=== PATIENT | female | born 1950 | race American Indian/Alaskan Native ===

== ENCOUNTER 2017-03-06 19:22 | Inpatient (IN) | payer MEDICARE ==
[2017-03-06] MEDS ORDERED: NORMODYNE IV ONE (21:08)
--- NOTE | 2017-03-06 21:08 | Emergency Department Report ---
ED Headache HPI - General Chief Complaint: Headache Stated Complaint: H/A; N/V Time Seen by Provider: 03/06/17 20:06 Source: patient, family (SISTER) Exam Limitations: other (DEMENTIA LIMITS HER COGNITIVE ABILITY) - History of Present Illness Initial Comments: 66 YO FEMALE PT WAS AT THE STORE WHEN SHE BEGAN TO HAVE HEADACHES. HER SISTER , WHO WAS WITH HER , BROUGHT HER HOME AND MEASURED HER BLOOD PRESSURE. THEIR MACHINE READ HIGH AND BECAUSE THE READING WERE ABOVE THE THRESHOLD OF THEIR MACHINE. SHE IS C/O HEADACHE. HSE HAS A H/O CVA 8 MONTHS AGO WITH THE SAME PRESENTATION OF HEADACHE AND HYPERTENSION. TODAY , WHEN SHE WENT HOME , SHE VOMITED FOR HALD AN HOUR,. SHE DID NOT C/O OF NAUSEA WHEN I EXAMINED HER . PAST MEDICAL HISTORY INCLUDED CVA, HTN, DEMENTIA,HYPERLIPIDEMIA,BIPOLAR, Timing/Duration: 1-3 hours (PRIOR TO ARRIVAL) Quality: severe Head Injury Location: global Recent Head Trauma: no recent headache/trauma, occasional headaches Associated Symptoms: denies symptoms Allergies/Adverse Reactions: Allergies erythromycin base Allergy (Verified 03/06/17 19:26) Hives Home Medications: Ambulatory Orders ALBUTEROL Inhaler [ProAir HFA Inhaler] 2 puff IH QID PRN 08/24/16 Aspirin [Aspirin BABY CHEW TAB] 81 mg PO QDAY #30 tab.chew 08/26/16 AtorvaSTATin [Lipitor] 20 mg PO QHS #30 tablet 08/26/16 Carvedilol [Coreg] 25 mg PO BID #60 tablet 08/26/16 Hydrochlorothiazide [HCTZ] 25 mg PO QDAY #30 tablet 08/26/16 metFORMIN [Glucophage] 500 mg PO BID #60 tablet 08/26/16 ED Review of Systems ROS: Stated complaint: H/A; N/V Other details as noted in HPI Constitutional: denies: chills, fever Eyes: denies: eye pain, eye discharge, vision change ENT: denies: ear pain, throat pain Respiratory: denies: cough, shortness of breath, wheezing Cardiovascular: denies: chest pain, palpitations Endocrine: no symptoms reported Gastrointestinal: denies: abdominal pain, nausea, diarrhea Genitourinary: denies: urgency, dysuria, discharge Musculoskeletal: denies: back pain, joint swelling, arthralgia Skin: denies: rash, lesions Neurological: headache. denies: weakness, paresthesias Psychiatric: denies: anxiety, depression Hematological/Lymphatic: denies: easy bleeding, easy bruising ED Past Medical Hx - Past Medical History Previous Medical History?: Yes Hx Hypertension: Yes Hx CVA: Yes Hx Heart Attack/AMI: Yes Hx Diabetes: Yes Hx Psychiatric Treatment: Yes (Bipolar) Hx COPD: Yes Hx Dementia: Yes Additional medical history: hyperlipidemia, DEMENTIA - Surgical History Additional Surgical History: Rhinoplasty hyst back surgery - Social History Smoking Status: Never Smoker Substance Use Type: None - Medications Home Medications: Home Medications Medication Instructions Recorded Confirmed Last Taken Type ALBUTEROL Inhaler [ProAir HFA 2 puff IH QID PRN 08/24/16 08/24/16 Unknown History Inhaler] Aspirin [Aspirin BABY CHEW TAB] 81 mg PO QDAY #30 tab.chew 08/26/16 Unknown Rx AtorvaSTATin [Lipitor] 20 mg PO QHS #30 tablet 08/26/16 Unknown Rx Carvedilol [Coreg] 25 mg PO BID #60 tablet 08/26/16 Unknown Rx Hydrochlorothiazide [HCTZ] 25 mg PO QDAY #30 tablet 08/26/16 Unknown Rx metFORMIN [Glucophage] 500 mg PO BID #60 tablet 08/26/16 Unknown Rx ED Physical Exam - General Limitations: No Limitations General appearance: alert, in no apparent distress - Head Head exam: Present: atraumatic, normocephalic - Eye Eye exam: Present: normal appearance, EOMI - ENT ENT exam: Present: mucous membranes moist - Neck Neck exam: Present: normal inspection, full ROM - Respiratory Respiratory exam: Present: normal lung sounds bilaterally. Absent: respiratory distress, wheezes, rales - Cardiovascular Cardiovascular Exam: Present: regular rate, normal rhythm. Absent: systolic murmur, diastolic murmur, rubs, gallop - GI/Abdominal GI/Abdominal exam: Present: soft, normal bowel sounds - Extremities Exam Extremities exam: Present: normal inspection - Back Exam Back exam: Present: normal inspection - Neurological Exam Neurological exam: Present: alert, oriented X3 - Psychiatric Psychiatric exam: Present: normal affect, normal mood - Skin Skin exam: Present: warm, dry, intact, normal color. Absent: rash ED Course Vital Signs 03/06/17 03/06/17 03/06/17 19:26 20:00 20:30 Temperature 98.5 F Pulse Rate 84 80 81 Respiratory 18 13 14 Rate Blood Pressure 250/125 246/112 267/117 Blood Pressure [Right] O2 Sat by Pulse 99 99 98 Oximetry 03/06/17 03/06/17 03/06/17 21:00 21:26 21:30 Temperature Pulse Rate 83 83 81 Respiratory 15 15 Rate Blood Pressure 255/107 255/107 226/107 Blood Pressure [Right] O2 Sat by Pulse 100 95 Oximetry 03/06/17 03/06/17 22:00 22:57 Temperature Pulse Rate 81 81 Respiratory 16 Rate Blood Pressure 255/107 Blood Pressure 187/93 [Right] O2 Sat by Pulse Oximetry ED Medical Decision Making - Lab Data Result diagrams: 03/06/17 21:25 03/06/17 21:25 - Radiology Data Radiology results: report reviewed (CT HEAD: ATROPHY,ENCEPHOMALASIA,OLD LACUNAR INFARCTIONS. MRI RECOMMENDED) Critical care time in (mins) excluding proc time.: 60 Critical care attestation.: If time is entered above; I have spent that time in minutes in the direct care of this critically ill patient, excluding procedure time. MANOLO Critical Care Time: 60MIN ED Disposition Clinical Impression: Hypertensive urgency, malignant Headache Qualifiers: Headache type: unspecified Headache chronicity pattern: acute headache Intractability: intractable Qualified Code(s): R51 - Headache Disposition: DC-09 OP ADMIT IP TO THIS HOSP Is pt being admited?: Yes Does the pt Need Aspirin: No Condition: Critical Referrals: VIVIAN SANCHEZ MD [Primary Care Provider] - 3-5 Days Time of Disposition: 23:11 (CASE REVIEWED WITH DR VICENTE AND SHE WILL ADMIT HER TO THE HOSPITAL)
[2017-03-06] MEDS ORDERED: MORPHINE IV ONE (21:11)
[2017-03-06] MEDS ORDERED: ZOFRAN IV ONE (21:11)
[2017-03-06 21:43] LABS: Basophils % (Auto) 0.3 % (0.0-1.8); Eosinophils # (Auto) 0.1 K/mm3 (0.0-0.4); Eosinophils % (Auto) 0.9 % (0.0-4.3); Hematocrit 37.5 % (30.3-42.9); Hemoglobin 12.2 gm/dl (10.1-14.3); Lymphocytes # (Auto) 1.3 K/mm3 (1.2-5.4); Lymphocytes % (Auto) 13.7 % (13.4-35.0); Mean Corpuscular HGB Conc 33 % (30-34); Mean Corpuscular Hemoglobin 28 pg (28-32); Mean Corpuscular Volume 86 fl (79-97); Monocytes # (Auto) 0.3 K/mm3 (0.0-0.8); Monocytes % (Auto) 3.2 % (0.0-7.3); Platelet Count 193 K/mm3 (140-440); Red Blood Count 4.35 M/mm3 (3.65-5.03); Red Cell Distribution Width 13.8 % (13.2-15.2)
[2017-03-06 21:52] LABS: INR 1.03 (0.87-1.13)
[2017-03-06 21:53] LABS: Partial Thromboplastin Time 36.2 Sec. (24.2-36.6)
[2017-03-06 21:56] LABS: Alanine Aminotransferase 16 units/L (7-56); Albumin 4.4 g/dL (3.9-5); BUN/Creatinine Ratio 34; Blood Urea Nitrogen 31 mg/dL (7-17); Calcium 9.8 mg/dL (8.4-10.2); Hemolysis Index 7
--- NOTE | 2017-03-06 22:55 | Cat Scan Report ---
FINAL REPORT PROCEDURE: CT HEAD/BRAIN WO CON TECHNIQUE: Computerized tomography of the head was performed without contrast material. DLP 1003.91 mGy-cm. HISTORY: Headache. COMPARISON: No prior studies are available for comparison. FINDINGS: Skull and scalp: Normal. Paranasal sinuses: Normal. Ventricles and subarachnoid spaces: Ventricles are prominent. Cerebrum: Atrophy. Moderate periventricular white matter low attenuation. More focal low attenuation in the left occipital and right frontal lobes. Right frontal lobe low-attenuation extends to the right basal ganglia/subinsular cortex. Left thalamic low-attenuation measuring 5.5 mm. Smaller 5 mm left thalamic low-attenuation more inferiorly. Artifact limits evaluation of the sella Cerebellum and brainstem: No evidence of hemorrhage, acute infarction or mass. Vasculature: Moderate atherosclerosis of the cavernous ICAs. Comments: None. IMPRESSION: Atrophy. Ventricular prominence probably in proportion to the degree of atrophy. White matter changes likely related to small vessel ischemic change. More focal low attenuation in the right frontal and left occipital lobes, consider prior ischemia/infarction and associated encephalomalacia. Probable basal ganglia/left thalamic lacunes. Recommend MRI for further characterization if there is continued clinical concern for superimposed acute process and if patient has no contraindication to MRI.
[2017-03-06] MEDS ORDERED: CARDENE 50 MG in NACL 0.9% 250ML 230 ML IV SCH (23:45)
[2017-03-07] MEDS ORDERED: ZOFRAN IV PRN (00:59)
[2017-03-07] MEDS ORDERED: SODIUM CHLORIDE FLUSH SYRINGE 10 ML IV PRN (00:59)
[2017-03-07] MEDS ORDERED: TYLENOL PO PRN (00:59)
[2017-03-07] MEDS ORDERED: D50W (25GM) Syringe IV PRN (00:59)
[2017-03-07] MEDS ORDERED: MORPHINE IV PRN (00:59)
[2017-03-07] MEDS ORDERED: MILK OF MAGNESIA PO PRN (00:59)
[2017-03-07] MEDS ORDERED: NORMODYNE IV PRN (00:59)
[2017-03-07] MEDS ORDERED: DULCOLAX PR PRN (00:59)
--- NOTE | 2017-03-07 01:35 | History and Physical Report ---
History of Present Illness Chief complaint: Headache History of present illness: 56-year-old woman with past medical history of hypertension, previous CVA, diabetes on oral medications, hyperlipidemia, COPD, vitiligo and bipolar disorder who presents with one-day of headache. States that the headache is frontal 7 out of 10, no radiation. She then started having vomiting for 1-1/2 hours from 10 to come into the hospital. She denies new focal weakness or numbness. She denies chest pain or redness of breath fevers or chills. She states that her previous stroke occurred like this she had severe headache and elevated blood pressure and then she ended up having a stroke. She had very elevated blood pressure in the ER, she received labetalol, after which it improved. she claims she is compliant with BP meds at home and low salt diet Past History Past Medical History: diabetes, hypertension, hyperlipidemia, stroke, other Past Surgical History: cholecystectomy Social history: no significant social history Family history: hypertension, stroke Medications and Allergies Allergies Allergy/AdvReac Type Severity Reaction Status Date / Time erythromycin base Allergy Hives Verified 03/06/17 19:26 Home Medications Medication Instructions Recorded Confirmed Last Taken Type Aspirin [Aspirin BABY CHEW TAB] 81 mg PO QDAY #30 tab.chew 08/26/16 03/07/17 Unknown Rx AtorvaSTATin [Lipitor] 20 mg PO QHS #30 tablet 08/26/16 03/07/17 Unknown Rx Carvedilol [Coreg] 25 mg PO BID #60 tablet 08/26/16 03/07/17 Unknown Rx Linagliptin [Tradjenta] 5 mg PO QDAY 03/07/17 03/07/17 Unknown History Active Meds: Active Medications Acetaminophen (Tylenol) 650 mg PO Q4H PRN PRN Reason: Pain MILD(1-3)/Fever >100.5/HANSON Aspirin (Baby Aspirin) 81 mg PO QDAY JOANN Atorvastatin Calcium (Lipitor) 20 mg PO QHS JOANN Bisacodyl (Dulcolax) 10 mg NH QDAY PRN PRN Reason: Constipation unrelieved by MOM Dextrose (D50w (25gm) Syringe) 50 ml IV PRN PRN PRN Reason: Hypoglycemia Enoxaparin Sodium (Lovenox) 40 mg SUB-Q QDAY JOANN Insulin Aspart (Novolog) 0 units SUB-Q ACHS JOANN PRN Reason: Protocol Labetalol HCl (Normodyne) 10 mg IV Q4H PRN PRN Reason: For BP >170/110 Linagliptin (Tradjenta) 5 mg PO QDAY JOANN Magnesium Hydroxide (Milk Of Magnesia) 30 ml PO Q4H PRN PRN Reason: Constipation Morphine Sulfate (Morphine) 2 mg IV Q4H PRN PRN Reason: Pain, Moderate (4-6) Ondansetron HCl (Zofran) 4 mg IV Q8H PRN PRN Reason: N/V unrelieved by Reglan Sodium Chloride (Sodium Chloride Flush Syringe 10 Ml) 10 ml IV PRN PRN PRN Reason: LINE FLUSH Review of Systems All systems: negative (heme point review of systems is otherwise negative except as reviewed in HPI) Exam - Constitutional Vitals: Temp Pulse Resp BP Pulse Ox 98.5 F 80 14 168/78 94 03/06/17 19:26 03/07/17 01:00 03/07/17 01:00 03/07/17 01:00 03/07/17 01:00 General appearance: Present: no acute distress, well-nourished - EENT Eyes: Present: PERRL ENT: hearing intact, clear oral mucosa - Neck Neck: Present: supple, normal ROM - Respiratory Respiratory effort: normal Respiratory: bilateral: CTA - Cardiovascular Heart Sounds: Present: S1 & S2. Absent: rub, click - Extremities Extremities: pulses symmetrical, No edema Peripheral Pulses: within normal limits - Abdominal General gastrointestinal: Present: soft, non-tender, non-distended, normal bowel sounds Female genitourinary: Present: normal - Integumentary Integumentary: Present: clear, warm, dry - Musculoskeletal Musculoskeletal: gait normal, strength equal bilaterally - Psychiatric Psychiatric: appropriate mood/affect, intact judgment & insight - Neurologic Neurologic: CNII-XII intact, moves all extremities Results - Labs CBC & Chem 7: 03/06/17 21:25 03/06/17 21:25 Labs: Laboratory Last Values WBC 9.5 K/mm3 (4.5-11.0) 03/06/17 21:25 RBC 4.35 M/mm3 (3.65-5.03) 03/06/17 21:25 Hgb 12.2 gm/dl (10.1-14.3) 03/06/17 21:25 Hct 37.5 % (30.3-42.9) 03/06/17 21:25 MCV 86 fl (79-97) 03/06/17 21:25 MCH 28 pg (28-32) 03/06/17 21:25 MCHC 33 % (30-34) 03/06/17 21:25 RDW 13.8 % (13.2-15.2) 03/06/17 21:25 Plt Count 193 K/mm3 (140-440) 03/06/17 21:25 Lymph % (Auto) 13.7 % (13.4-35.0) 03/06/17 21:25 [place] % (Auto) 3.2 % (0.0-7.3) 03/06/17 21:25 Eos % (Auto) 0.9 % (0.0-4.3) 03/06/17 21:25 Baso % (Auto) 0.3 % (0.0-1.8) 03/06/17 21:25 Lymph # 1.3 K/mm3 (1.2-5.4) 03/06/17 21:25 [place] # 0.3 K/mm3 (0.0-0.8) 03/06/17 21:25 Eos # 0.1 K/mm3 (0.0-0.4) 03/06/17 21:25 Baso # 0.0 K/mm3 (0.0-0.1) 03/06/17 21:25 Seg Neutrophils % 81.9 % (40.0-70.0) H 03/06/17 21:25 Seg Neutrophils # 7.8 K/mm3 (1.8-7.7) H 03/06/17 21:25 PT 14.0 Sec. (12.2-14.9) 03/06/17 21:25 INR 1.03 (0.87-1.13) 03/06/17 21:25 APTT 36.2 Sec. (24.2-36.6) 03/06/17 21:25 Sodium 140 mmol/L (137-145) 03/06/17 21:25 Potassium 4.2 mmol/L (3.6-5.0) 03/06/17 21:25 Chloride 97.3 mmol/L (98-107) L 03/06/17 21:25 Carbon Dioxide 27 mmol/L (22-30) 03/06/17 21:25 Anion Gap 20 mmol/L 03/06/17 21:25 BUN 31 mg/dL (7-17) H 03/06/17 21:25 Creatinine 0.9 mg/dL (0.7-1.2) 03/06/17 21:25 Estimated GFR > 60 ml/min 03/06/17 21:25 BUN/Creatinine Ratio 34 % 03/06/17 21:25 Glucose 155 mg/dL (65-100) H 03/06/17 21:25 Calcium 9.8 mg/dL (8.4-10.2) 03/06/17 21:25 Total Bilirubin 0.60 mg/dL (0.1-1.2) 03/06/17 21:25 AST 17 units/L (5-40) 03/06/17 21:25 ALT 16 units/L (7-56) 03/06/17 21:25 Alkaline Phosphatase 57 units/L (35-129) 03/06/17 21:25 Total Creatine Kinase 51 units/L (30-135) 03/06/17 21:25 CK-MB (CK-2) 1.0 ng/mL (0.0-4.0) 03/06/17 21:25 CK-MB (CK-2) Rel Index 1.9 (0-4) 03/06/17 21:25 Troponin T < 0.010 ng/mL (0.00-0.029) 03/06/17 21:25 Total Protein 7.7 g/dL (6.3-8.2) 03/06/17 21:25 Albumin 4.4 g/dL (3.9-5) 03/06/17 21:25 Albumin/Globulin Ratio 1.3 % 03/06/17 21:25 - Imaging and Cardiology CT Scan - head: image reviewed (nonspecific neutrophilia and encephalomalacia) Assessment and Plan Assessment and plan: 66-year-old woman with past medical history of hypertension and previous CVA, diabetes and hyperlipidemia who presents with accelerated hypertension and headache nausea and vomiting Hypertensive urgency Has responded well to labetalol, continue IV as needed Abnormal CT head, encephalomalacia No focal weakness to suggest stroke at this time, I'll put on stroke protocol Obtain MRI of brain Diabetes Insulin sliding scale while in hospital, continue oral medications Hyperlipidemia Continue statin COPD Stable Plan of care discussed with patient/family: Yes
[2017-03-07 02:24] LABS: Creatine Kinase MB < 1.0 ng/mL (0.0-4.0)
[2017-03-07] MEDS: NOVOLOG SUB-Q SCH ×4 (08:07→23:04)
[2017-03-07] MEDS: BABY ASPIRIN PO SCH (09:48)
[2017-03-07] MEDS: LOVENOX SUB-Q SCH (09:48)
[2017-03-07] MEDS: TRADJENTA PO SCH (09:49)
--- NOTE | 2017-03-07 14:16 | Magnetic Resonance Report ---
MRI OF THE BRAIN WITHOUT CONTRAST: HISTORY: Stroke PROCEDURE: Multiplanar, multisequence MR imaging of the brain without IV contrast was performed. FINDINGS: Compared to the CT head performed 03/06/17. Mild nonspecific chronic periventricular white matter changes are identified. Subcentimeter chronic focal infarcts are noted in both basal ganglia and bilateral haines radiata. No large chronic infarct. No evidence for acute ischemia, hemorrhage or mass. No chronic infarct or extra-axial fluid collection. The midline structures are central. The basal cisterns are patent. Normal ventricular size. The orbital cavities and sella turcica demonstrate no abnormality. The visualized paranasal sinuses and mastoid air cells are well aerated. IMPRESSION: No acute intracranial process. Multiple chronic lacunar infarcts in the basal ganglia regions. Chronic white matter changes.
--- NOTE | 2017-03-07 14:17 | Magnetic Resonance Report ---
MRA HEAD WITHOUT CONTRAST HISTORY: Stroke. [id number] imaging with MIP reformations of the [place] is submitted. The images are limited secondary to patient motion. The arteries appear widely patent and free of hemodynamically significant stenosis, aneurysm or dissection. Bilateral posterior communicating arteries are noted. IMPRESSION: No large vessel occlusion is identified
--- NOTE | 2017-03-07 17:06 | Event Note ---
Date: 03/07/17 Patient was admitted today for severe headache, elevated blood pressure with nausea and vomiting was seen and examined today . No new complaints. CT scan, MRI, MRA of the brain were unremarkable for any acute events. Continue current management protocol. Laboratory and radiological data were reviewed. The patient improving.
[2017-03-08 06:54] LABS: Chol/HDL Ratio 2.38 %
[2017-03-08] MEDS: NOVOLOG SUB-Q SCH ×4 (08:47→23:56)
[2017-03-08] MEDS: TRADJENTA PO SCH (09:09)
[2017-03-08] MEDS: BABY ASPIRIN PO SCH (09:09)
[2017-03-08] MEDS: LOVENOX SUB-Q SCH (09:10)
[2017-03-08] MEDS ORDERED: APRESOLINE IV PRN (09:16)
--- NOTE | 2017-03-08 09:24 | Progress Note ---
Assessment and Plan Assessment and plan: 66-year-old woman with past medical history of hypertension and previous CVA, diabetes and hyperlipidemia who presents with accelerated hypertension and headache nausea and vomiting Hypertensive urgency optimize PO meds Abnormal CT head, encephalomalacia No focal weakness to suggest stroke at this time, MR brain neg for acute cva Diabetes Insulin sliding scale while in hospital, continue oral medications Hyperlipidemia Continue statin COPD Stable History Interval history: denies HANSON, CP, SOB or focal weakness, no diarrhea, no fever Hospitalist Physical - Constitutional Vitals: Temp Pulse Resp BP Pulse Ox 98.5 F 66 20 185/85 95 03/08/17 07:36 03/08/17 07:36 03/08/17 07:36 03/08/17 07:36 03/08/17 07:36 General appearance: Present: no acute distress, well-nourished - EENT Eyes: Present: PERRL ENT: hearing intact - Neck Neck: Present: supple - Respiratory Respiratory effort: normal Respiratory: bilateral: CTA - Cardiovascular Rhythm: regular Heart Sounds: Present: S1 & S2 - Extremities Extremities: no ischemia Peripheral Pulses: within normal limits - Abdominal General gastrointestinal: soft, non-tender - Integumentary Integumentary: Present: clear, warm, dry - Psychiatric Psychiatric: appropriate mood/affect - Neurologic Neurologic: CNII-XII intact, no focal deficits, moves all extremities Results - Labs CBC & Chem 7: 03/06/17 21:25 03/06/17 21:25 Labs: Laboratory Last Values WBC 9.5 K/mm3 (4.5-11.0) 03/06/17 21:25 RBC 4.35 M/mm3 (3.65-5.03) 03/06/17 21:25 Hgb 12.2 gm/dl (10.1-14.3) 03/06/17 21:25 Hct 37.5 % (30.3-42.9) 03/06/17 21:25 MCV 86 fl (79-97) 03/06/17 21:25 MCH 28 pg (28-32) 03/06/17 21:25 MCHC 33 % (30-34) 03/06/17 21:25 RDW 13.8 % (13.2-15.2) 03/06/17 21:25 Plt Count 193 K/mm3 (140-440) 03/06/17 21:25 Lymph % (Auto) 13.7 % (13.4-35.0) 03/06/17 21:25 [place] % (Auto) 3.2 % (0.0-7.3) 03/06/17 21:25 Eos % (Auto) 0.9 % (0.0-4.3) 03/06/17 21:25 Baso % (Auto) 0.3 % (0.0-1.8) 03/06/17 21:25 Lymph # 1.3 K/mm3 (1.2-5.4) 03/06/17 21:25 [place] # 0.3 K/mm3 (0.0-0.8) 03/06/17 21:25 Eos # 0.1 K/mm3 (0.0-0.4) 03/06/17 21:25 Baso # 0.0 K/mm3 (0.0-0.1) 03/06/17 21:25 Seg Neutrophils % 81.9 % (40.0-70.0) H 03/06/17 21:25 Seg Neutrophils # 7.8 K/mm3 (1.8-7.7) H 03/06/17 21:25 PT 14.0 Sec. (12.2-14.9) 03/06/17 21:25 INR 1.03 (0.87-1.13) 03/06/17 21:25 APTT 36.2 Sec. (24.2-36.6) 03/06/17 21:25 Sodium 140 mmol/L (137-145) 03/06/17 21:25 Potassium 4.2 mmol/L (3.6-5.0) 03/06/17 21:25 Chloride 97.3 mmol/L (98-107) L 03/06/17 21:25 Carbon Dioxide 27 mmol/L (22-30) 03/06/17 21:25 Anion Gap 20 mmol/L 03/06/17 21:25 BUN 31 mg/dL (7-17) H 03/06/17 21:25 Creatinine 0.9 mg/dL (0.7-1.2) 03/06/17 21:25 Estimated GFR > 60 ml/min 03/06/17 21:25 BUN/Creatinine Ratio 34 % 03/06/17 21:25 Glucose 155 mg/dL (65-100) H 03/06/17 21:25 POC Glucose 104 (70-105) 03/08/17 06:00 Calcium 9.8 mg/dL (8.4-10.2) 03/06/17 21:25 Total Bilirubin 0.60 mg/dL (0.1-1.2) 03/06/17 21:25 AST 17 units/L (5-40) 03/06/17 21:25 ALT 16 units/L (7-56) 03/06/17 21:25 Alkaline Phosphatase 57 units/L (35-129) 03/06/17 21:25 Total Creatine Kinase 43 units/L (30-135) 03/07/17 01:31 CK-MB (CK-2) < 1.0 ng/mL (0.0-4.0) 03/07/17 01:31 CK-MB (CK-2) Rel Index 2.3 (0-4) 03/07/17 01:31 Troponin T < 0.010 ng/mL (0.00-0.029) 03/07/17 01:31 Total Protein 7.7 g/dL (6.3-8.2) 03/06/17 21:25 Albumin 4.4 g/dL (3.9-5) 03/06/17 21:25 Albumin/Globulin Ratio 1.3 % 03/06/17 21:25 Triglycerides 71 mg/dL (2-149) 03/08/17 05:37 Cholesterol 112 mg/dL (50-199) 03/08/17 05:37 LDL Cholesterol Direct 51 mg/dL (50-130) 03/08/17 05:37 HDL Cholesterol 47 mg/dL (40-59) 03/08/17 05:37 Cholesterol/HDL Ratio 2.38 % 03/08/17 05:37 - Imaging and Cardiology MRI - head: image reviewed (no new stroke)
[2017-03-08] MEDS: DIOVAN PO SCH (10:31)
[2017-03-08] MEDS: COREG PO SCH ×2 (10:31→22:27)
[2017-03-08] MEDS: GLUCOPHAGE PO SCH (16:44)
--- NOTE | 2017-03-09 07:51 | Discharge Summary ---
Providers - Providers Date of Admission: 03/07/17 00:59 Date of discharge: 03/11/17 Attending physician: JAMIE INIGUEZ MD 03/07/17 00:59 Consult to Dietitian/Nutrition [CONS] Routine Physician Instructions: Reason For Exam: Reason for Consult: Diet education Consult to Dietitian/Nutrition [CONS] Routine Physician Instructions: Reason For Exam: Reason for Consult: Nutrition Recommendations Reason for Consult: Diet education Occupational Therapy Evaluate and Treat [CONS] Routine Comment: Reason For Exam: Neuro deficits Physical Therapy Evaluation and Treat [CONS] Routine Comment: Reason For Exam: Neuro deficits Primary care physician: VIVIAN SANCHEZ Hospitalization Reason for admission: hypertensive Urgency Condition: Critical Pertinent studies: MRI head no acute intracranial abnormalities, chronic lacunar infarcts. ECHOcardiogram EF 55-60%, diastolic dysfunction Hospital course: 66-year-old woman with past medical history of hypertension and previous CVA, diabetes and hyperlipidemia who presents with accelerated hypertension and headache nausea and vomiting. Patients BP medications were optimized and BP was controlled . Nausea, vomiting subsided. Comorbid conditions were treated appropriately and patient was discharged home in a stable condition. Disposition: DC/[place]-06 HOME UNDER HOME [facility] Time spent for discharge: 31 minutes - Discharge Diagnoses (1) Alzheimer's dementia Status: Acute (2) Headache Status: Acute Qualifiers: Headache type: unspecified Headache chronicity pattern: acute headache Intractability: intractable Qualified Code(s): R51 - Headache (3) Hypertensive urgency, malignant Status: Acute Core Measure Documentation - Palliative Care Palliative Care/ Comfort Measures: Not Applicable - Core Measures Any of the following diagnoses?: history only (CVA) Exam - Physical Exam Narrative exam: Not in cardiopulmonary distress. The patient appeared well nourished and normally developed. Vital signs as documented. Head exam is unremarkable. No scleral icterus . Neck is without jugular venous distension, thyromegaly, or carotid bruits. Lungs are clear to auscultation. Cardiac exam reveals regular rate and Rhythm. First and second heart sounds normal. No murmurs, rubs or gallops. Abdominal exam reveals normal bowel sounds, no masses, no organomegaly and no aortic enlargement. Extremities are nonedematous and both femoral and pedal pulses are normal. PLANER OPERATOR: alert. - Constitutional Vitals: Temp Pulse Resp BP Pulse Ox 98.7 F 78 20 170/75 93 03/09/17 04:09 03/09/17 04:09 03/09/17 04:09 03/09/17 04:09 03/09/17 04:09 Plan Activity: no restrictions Weight Bearing Status: Full Weight Bearing Diet: low cholesterol, low salt, diabetic Follow up with: VIVIAN SANCHEZ MD [Primary Care Provider] - 7 Days Prescriptions: amLODIPine [Norvasc] 10 mg PO DAILY #30 tab Valsartan [Diovan] 320 mg PO QDAY #60 tablet
[2017-03-09] MEDS: GLUCOPHAGE PO SCH (08:15)
[2017-03-09] MEDS ORDERED: APRESOLINE PO SCH (08:30)
[2017-03-09] MEDS: NOVOLOG SUB-Q SCH ×2 (09:39→12:12)
[2017-03-09] MEDS: DIOVAN PO SCH (09:41)
[2017-03-09] MEDS: COREG PO SCH (09:41)
[2017-03-09] MEDS: LOVENOX SUB-Q SCH (09:41)
[2017-03-09] MEDS: BABY ASPIRIN PO SCH (09:41)
[2017-03-09 11:13] VITALS: BP 156/68
[2017-03-09] MEDS ORDERED: PROCARDIA XL PO SCH (22:16)
== END 2017-03-09 12:34 | disposition home health service (06) | DRG 305 ==
LOC: ED 19:22 → 3A 03-07 00:59
PROVIDERS: ADMIT Internal Medicine; ATTEND Internal Medicine
DX: I16.0 Hypertensive urgency (principal); E78.5 Hyperlipidemia, unspecified; G30.9 Alzheimer's disease, unspecified; F02.80 Dementia in other diseases classified elsewhere, unspecified severity, without behavioral disturbance, psychotic disturbance, mood disturbance, and anxiety; I10 Essential (primary) hypertension; F31.9 Bipolar disorder, unspecified; E11.9 Type 2 diabetes mellitus without complications; J44.9 Chronic obstructive pulmonary disease, unspecified; Z86.73 Personal history of transient ischemic attack (TIA), and cerebral infarction without residual deficits; Z88.1 Allergy status to other antibiotic agents; I25.2 Old myocardial infarction; Z82.49 Family history of ischemic heart disease and other diseases of the circulatory system; Z90.49 Acquired absence of other specified parts of digestive tract; Z79.82 Long term (current) use of aspirin
CPT/HCPCS: 36415; 70450; 70544; 70551; 80053; 80061; 82550; 82553; 82962; 84484; 85025; 85610; 85730; 93306; 96374; 96375; A9270-GY; J0360; J1650; J1815; J2270; J2405; J7050

== ENCOUNTER 2017-03-12 17:07 | Emergency (ER) | payer MEDICARE ==
[2017-03-12] MEDS ORDERED: CATAPRES ONE (17:37)
[2017-03-12] MEDS ORDERED: CATAPRES PO ONE (17:43)
[2017-03-12 19:22] LABS: BUN/Creatinine Ratio 28; Blood Urea Nitrogen 25 mg/dL (7-17); Hemolysis Index 22
[2017-03-12 19:25] LABS: Hematocrit 37.2 % (30.3-42.9); Hemoglobin 12.3 gm/dl (10.1-14.3); Mean Corpuscular HGB Conc 33 % (30-34); Mean Corpuscular Hemoglobin 29 pg (28-32); Mean Corpuscular Volume 88 fl (79-97); Platelet Count 189 K/mm3 (140-440); Red Blood Count 4.22 M/mm3 (3.65-5.03)
--- NOTE | 2017-03-12 19:31 | Cat Scan Report ---
FINAL REPORT EXAM: CT HEAD/BRAIN WO CON HISTORY: HTN, HANSON TECHNIQUE: CT imaging is acquired through the brain without contrast. Transaxial reformations are provided. PRIORS: 03/06/2017 FINDINGS: Right frontal and left occipital areas of encephalomalacia. Left basal ganglia lacunar infarcts. Ventricles and CSF spaces are otherwise proportionately enlarged, consistent with parenchymal atrophy. Additional scattered deep and subcortical white matter hypodense foci are confluent in some areas and are compatible with microvascular angiopathy. No acute intracranial hemorrhage or mass effect. No skull fracture. No significant abnormality within the imaged paranasal sinuses or mastoid air cells. IMPRESSION: No acute intracranial hemorrhage or mass effect. There are sequela of prior infarct, atrophy and microvascular angiopathy. Consider follow-up MRI.
[2017-03-12 19:34] LABS: Basophils % (Auto) 0.5 % (0.0-1.8); Eosinophils # (Auto) 0.3 K/mm3 (0.0-0.4); Eosinophils % (Auto) 3.7 % (0.0-4.3); Lymphocytes # (Auto) 2.5 K/mm3 (1.2-5.4); Lymphocytes % (Auto) 28.9 % (13.4-35.0); Monocytes # (Auto) 0.6 K/mm3 (0.0-0.8); Monocytes % (Auto) 6.4 % (0.0-7.3)
[2017-03-13] MEDS ORDERED: CATAPRES PO ONE (06:31)
--- NOTE | 2017-03-13 06:35 | Emergency Department Report ---
ED General Adult HPI - General Chief complaint: High BP Stated complaint: HYPERTENSIVE Time Seen by Provider: 03/13/17 06:11 Source: patient Mode of arrival: Ambulatory Limitations: No Limitations - History of Present Illness Initial comments: Patient is a 66-year-old female who is presenting with a chief complaint of elevated blood pressure. Patient's sister states that her blood pressure has been elevated steadily over the last week. Patient was recently placed on Dyazide. Patient has only taken this medication for approximately 3- 4 days. Patient only complaining of a mild headache periodically. Blood pressure at home was 170 systolic. Patient is denying any chest pain shortness of breath nausea vomiting weakness at this time. -: Gradual, week(s) Severity scale (0 -10): 0 - Related Data Home Medications Medication Instructions Recorded Confirmed Last Taken metFORMIN [Glucophage] 500 mg PO BID 03/08/17 03/08/17 03/06/17 22:00 Previous Rx's Medication Instructions Recorded Last Taken Type Aspirin [Aspirin BABY CHEW TAB] 81 mg PO QDAY #30 tab.chew 08/26/16 Unknown Rx AtorvaSTATin [Lipitor] 20 mg PO QHS #30 tablet 08/26/16 Unknown Rx Carvedilol [Coreg] 25 mg PO BID #60 tablet 08/26/16 Unknown Rx Valsartan [Diovan] 320 mg PO QDAY #60 tablet 03/09/17 Unknown Rx amLODIPine [Norvasc] 10 mg PO DAILY #30 tab 03/09/17 Unknown Rx Allergies Allergy/AdvReac Type Severity Reaction Status Date / Time erythromycin base Allergy Hives Verified 03/06/17 19:26 ED Review of Systems ROS: Stated complaint: HYPERTENSIVE Other details as noted in HPI Comment: All other systems reviewed and negative ED Past Medical Hx - Past Medical History Hx Hypertension: Yes Hx CVA: Yes Hx Heart Attack/AMI: Yes Hx Diabetes: Yes Hx Psychiatric Treatment: Yes (Bipolar) Hx COPD: Yes Hx Dementia: Yes Additional medical history: hyperlipidemia, DEMENTIA, going blind? - Surgical History Hx Cholecystectomy: Yes Additional Surgical History: Rhinoplasty hyst back surgery, BL hands - Social History Smoking Status: Former Smoker Substance Use Type: None - Medications Home Medications: Home Medications Medication Instructions Recorded Confirmed Last Taken Type Aspirin [Aspirin BABY CHEW TAB] 81 mg PO QDAY #30 tab.chew 08/26/16 03/07/17 Unknown Rx AtorvaSTATin [Lipitor] 20 mg PO QHS #30 tablet 08/26/16 03/07/17 Unknown Rx Carvedilol [Coreg] 25 mg PO BID #60 tablet 08/26/16 03/07/17 Unknown Rx metFORMIN [Glucophage] 500 mg PO BID 03/08/17 03/08/17 03/06/17 22:00 History Valsartan [Diovan] 320 mg PO QDAY #60 tablet 03/09/17 Unknown Rx amLODIPine [Norvasc] 10 mg PO DAILY #30 tab 03/09/17 Unknown Rx ED Physical Exam - General Limitations: No Limitations General appearance: alert, in no apparent distress - Head Head exam: Present: atraumatic, normocephalic - Eye Eye exam: Present: normal appearance - ENT ENT exam: Present: mucous membranes moist - Neck Neck exam: Present: normal inspection - Respiratory Respiratory exam: Present: normal lung sounds bilaterally. Absent: respiratory distress - Cardiovascular Cardiovascular Exam: Present: regular rate, normal rhythm. Absent: systolic murmur, diastolic murmur, rubs, gallop - GI/Abdominal GI/Abdominal exam: Present: soft, normal bowel sounds - Extremities Exam Extremities exam: Present: normal inspection - Back Exam Back exam: Present: normal inspection - Neurological Exam Neurological exam: Present: alert, oriented X3 - Psychiatric Psychiatric exam: Present: normal affect, normal mood - Skin Skin exam: Present: warm, dry, intact, normal color. Absent: rash ED Course Vital Signs 03/12/17 03/12/17 03/12/17 17:26 17:44 21:32 Temperature 98.3 F 98.3 F Pulse Rate 70 70 69 Respiratory 18 16 Rate Blood Pressure 216/100 216/100 Blood Pressure 160/87 [Left] O2 Sat by Pulse 99 100 Oximetry 03/13/17 03/13/17 03/13/17 01:30 01:46 02:00 Temperature Pulse Rate 76 72 75 Respiratory 13 16 16 Rate Blood Pressure 186/81 179/82 176/83 Blood Pressure [Left] O2 Sat by Pulse 99 98 97 Oximetry 03/13/17 03/13/17 03/13/17 02:16 02:25 02:30 Temperature Pulse Rate 75 72 Respiratory 16 16 18 Rate Blood Pressure 159/79 169/84 Blood Pressure [Left] O2 Sat by Pulse 100 97 96 Oximetry 0103/13/17 03/13/17 02:46 03:00 03:15 Temperature Pulse Rate 74 75 72 Respiratory 17 16 15 Rate Blood Pressure 173/77 168/83 195/93 Blood Pressure [Left] O2 Sat by Pulse 99 99 100 Oximetry 03/13/17 03/13/17 03/13/17 03:30 03:45 04:00 Temperature Pulse Rate 74 80 78 Respiratory 20 17 13 Rate Blood Pressure 180/90 179/85 181/93 Blood Pressure [Left] O2 Sat by Pulse 95 94 96 Oximetry 03/13/17 03/13/17 04:15 04:30 Temperature Pulse Rate 74 85 Respiratory 15 15 Rate Blood Pressure 181/81 155/81 Blood Pressure [Left] O2 Sat by Pulse 98 96 Oximetry ED Medical Decision Making - Lab Data Result diagrams: 03/12/17 18:36 03/12/17 18:36 Lab Results 03/12/17 03/12/17 Range/Units 18:36 18:36 WBC 8.2 (4.5-11.0) K/mm3 RBC 4.22 (3.65-5.03) M/mm3 Hgb 12.3 (10.1-14.3) gm/dl Hct 37.2 (30.3-42.9) % MCV 88 (79-97) fl MCH 29 (28-32) pg MCHC 33 (30-34) % RDW 14.0 (13.2-15.2) % Plt Count 189 (140-440) K/mm3 Lymph % (Auto) 28.9 (13.4-35.0) % [place] % (Auto) 6.4 (0.0-7.3) % Eos % (Auto) 3.7 (0.0-4.3) % Baso % (Auto) 0.5 (0.0-1.8) % Lymph # 2.5 (1.2-5.4) K/mm3 [place] # 0.6 (0.0-0.8) K/mm3 Eos # 0.3 (0.0-0.4) K/mm3 Baso # 0.0 (0.0-0.1) K/mm3 Total Counted Cancelled Seg Neutrophils % 60.5 (40.0-70.0) % Seg Neuts % (Manual) Cancelled Band Neutrophils % Cancelled Lymphocytes % (Manual) Cancelled Reactive Lymphs % (Man) Cancelled Monocytes % (Manual) Cancelled Eosinophils % (Manual) Cancelled Basophils % (Manual) Cancelled Metamyelocytes % Cancelled Myelocytes % Cancelled Promyelocytes % Cancelled Blast Cells % Cancelled Nucleated RBC % Cancelled Seg Neutrophils # 5.3 (1.8-7.7) K/mm3 Seg Neutrophils # Man Cancelled Band Neutrophils # Cancelled Lymphocytes # (Manual) Cancelled Abs React Lymphs (Man) Cancelled Monocytes # (Manual) Cancelled Eosinophils # (Manual) Cancelled Basophils # (Manual) Cancelled Metamyelocytes # Cancelled Myelocytes # Cancelled Promyelocytes # Cancelled Blast Cells # Cancelled WBC Morphology Cancelled Hypersegmented Neuts Cancelled Hyposegmented Neuts Cancelled Hypogranular Neuts Cancelled Hypersegmented Polys Cancelled Smudge Cells Cancelled Toxic Granulation Cancelled Toxic Vacuolation Cancelled Dohle Bodies Cancelled Pelger-Huet Anomaly Cancelled Iqra Rods Cancelled Platelet Estimate Cancelled Clumped Platelets Cancelled Plt Clumps, EDTA Cancelled Large Platelets Cancelled Giant Platelets Cancelled Platelet Satelliting Cancelled Plt Morphology Comment Cancelled RBC Morphology Cancelled Dimorphic RBCs Cancelled Polychromasia Cancelled Hypochromasia Cancelled Poikilocytosis Cancelled Basophilic Stippling Cancelled Anisocytosis Cancelled Microcytosis Cancelled Macrocytosis Cancelled Spherocytes Cancelled Pappenheimer Bodies Cancelled Sickle Cells Cancelled Target Cells Cancelled Tear Drop Cells Cancelled Ovalocytes Cancelled Stomatocytes Cancelled Helmet Cells Cancelled [place] Bodies Cancelled [place] Rings Cancelled Egan Cells Cancelled Bite Cells Cancelled Crenated Cell Cancelled Elliptocytes Cancelled Acanthocytes (Spur) Cancelled Rouleaux Cancelled Hemoglobin C Crystals Cancelled Schistocytes Cancelled Malaria parasites Cancelled Isaac Bodies Cancelled Hem Pathologist Commnt Cancelled Sodium 138 (137-145) mmol/L Potassium 4.8 (3.6-5.0) mmol/L Chloride 98.2 (98-107) mmol/L Carbon Dioxide 24 (22-30) mmol/L Anion Gap 21 mmol/L BUN 25 H (7-17) mg/dL Creatinine 0.9 (0.7-1.2) mg/dL Estimated GFR > 60 ml/min BUN/Creatinine Ratio 28 % Glucose 108 H (65-100) mg/dL Calcium 10.0 (8.4-10.2) mg/dL - EKG Data EKG shows normal: sinus rhythm, axis (nl), intervals (nl), QRS complexes (nl), ST-T waves (t wave flipped in aVL) Rate: normal - Medical Decision Making Patient is a 66-year-old female who is presenting with elevated blood pressure. Patient has no end organ damage symptoms. Patient given Catapres and discharged home. Patient's sister was educated that because she is on a new medication this may not have started to control her blood pressure yet. Patient will follow her primary doctor next week. Critical care attestation.: If time is entered above; I have spent that time in minutes in the direct care of this critically ill patient, excluding procedure time. ED Disposition Clinical Impression: Hypertensive urgency, malignant Disposition: [id number] TO HOME OR SELFCARE Is pt being admited?: No Does the pt Need Aspirin: No Condition: Stable Instructions: Chronic Hypertension (ED) Additional Instructions: Please continue to take her blood pressure medicines as prescribed. Please also watch your diet for increased salt Referrals: VIVIAN SANCHEZ MD [Primary Care Provider] - 3-5 Days
[2017-03-13 06:48] VITALS: BP 171/89
== END 2017-03-13 07:00 | disposition home or self-care (01) ==
LOC: ED 17:07
DX: I16.0 Hypertensive urgency (principal); Z86.73 Personal history of transient ischemic attack (TIA), and cerebral infarction without residual deficits; E11.9 Type 2 diabetes mellitus without complications; F31.9 Bipolar disorder, unspecified; Z87.891 Personal history of nicotine dependence; J44.9 Chronic obstructive pulmonary disease, unspecified; Z88.8 Allergy status to other drugs, medicaments and biological substances; I25.2 Old myocardial infarction
CPT/HCPCS: 36415; 70450; 80048; 85025